=== PATIENT | male | born 1985 | race Asian ===

== ENCOUNTER 2023-09-02 01:46 | Emergency (ER) | payer BC ==
[2023-09-02 02:31] VITALS: TEMP 98.2; BMI 23.0
[2023-09-02 02:34] LABS: BASO % 0.3 % (0-2.0); HEMATOCRIT 44.5 % (35.4-49); HEMOGLOBIN 15.2 GM/dL (11.7-16.9); LYMPH % 29.6 % (8-40); MCH 29.5 pg (25.7-33.7); MCHC 34.2 g/dl (32.0-35.9); MEAN CELL VOLUME 86.5 fl (80-96); MEAN PLT VOLUME 8.6 fl (7.5-11.1); MONO % 5.3 % (3.8-10.2); NEUT % 62.8 % (42.8-82.8); PLATELET COUNT 250 10^3/uL (134-434); RBC 5.14 M/mm3 (4.00-5.60); WHITE BLOOD COUNT 8.7 K/mm3 (4.0-10.0)
[2023-09-02] MEDS ORDERED: ASPIRIN 81 MG CHEWABLE TABLETS ONE (02:40)
[2023-09-02 02:42] LABS: INR 0.87 (0.83-1.09)
[2023-09-02] MEDS: ASPIRIN 81 MG CHEWABLE TABLETS PO ONE (02:43)
[2023-09-02] MEDS ORDERED: CLOPIDOGREL BISULFATE 300 MG TABLET ONE (02:51)
[2023-09-02 02:53] LABS: POTASSIUM 3.8 mmol/L (3.5-5.1)
[2023-09-02 02:56] LABS: ALBUMIN 4.1 g/dl (3.4-5.0); BLOOD UREA NITROGEN 19.4 mg/dL (7-18); CALCIUM 9.1 mg/dL (8.5-10.1)
[2023-09-02] MEDS: CLOPIDOGREL BISULFATE 300 MG TABLET PO ONE (02:58)
[2023-09-02 02:59] LABS: CREATININE 1.1 mg/dL (0.55-1.3)
[2023-09-02 03:01] LABS: BILIRUBIN,TOTAL 0.4 mg/dL (0.2-1); TOT PROT 7.5 g/dl (6.4-8.2)
[2023-09-02] MEDS ORDERED: HEPARIN NA (PORCINE) 5,000 UNITS/ML 1ML VIAL ONE (03:04)
[2023-09-02] MEDS: HEPARIN NA (PORCINE) 5,000 UNITS/ML 1ML VIAL IVPUSH PRN (03:06)
[2023-09-02 03:28] VITALS: BP 140/94; PULSE 118; RESP 16
== END 2023-09-02 03:28 | disposition short-term general hospital (02) ==
LOC: JER 01:46
DX: I21.3 ST elevation (STEMI) myocardial infarction of unspecified site (principal); R07.89 Other chest pain; R00.2 Palpitations; R06.02 Shortness of breath; R94.31 Abnormal electrocardiogram [ECG] [EKG]
CPT/HCPCS: 36415; 71045-TC-FY; 80053; 84484; 85025; 85610; 93005; 93010; 99285-25; J1644